=== PATIENT | female | born 1980 | race Caucasian/White ===

== ENCOUNTER 2018-11-01 19:56 | Emergency (ER) | payer OTHER ==
[~2018-11-01] VITALS: Ht 170.2 cm; Wt 130.5 kg
[~2018-11-01 19:56] MED LIST: ADIPEX-P37.5 MG PO; ALDOMET 250MG250 MG; LABETALOL300 MG PO; NORMODYNE100 MG PO; PRENATAL1 TA2 PO; PRILOSEC 20MG20 MG PO; PROTONIX20 MG; XANAX .25M0.25 MG/TA PO
[2018-11-01 20:12] VITALS: BP 179/82; TEMP 98.5
[2018-11-01] MEDS ORDERED: CLEOCIN HCL300 MG PO (22:59)
[2018-11-01] MEDS ORDERED: PREDNISONE20 MG PO (23:37)
[2018-11-01 23:50] VITALS: PULSE 89
== END 2018-11-01 23:50 | disposition home or self-care (01) ==
LOC: COL.ER 19:56
DX: J02.9 Acute pharyngitis, unspecified (principal); R59.0 Localized enlarged lymph nodes; Z88.0 Allergy status to penicillin
CPT/HCPCS: J1100; J1885; J2405; J7030; Q9967